=== PATIENT | male | born 1950 | race Caucasian/White ===

== ENCOUNTER 2020-06-24 07:11 | Day surgery (SDC) | payer OTHER ==
[~2020-06-24] VITALS: Ht 177.8 cm; Wt 72.0 kg
[2020-06-24 07:05] VITALS: BP 157/100
[2020-06-24 07:48] VITALS: BP 157/100
[2020-06-24 07:56] VITALS: Ht 177.8 cm; Wt 72.0 kg
== END 2020-06-24 10:30 | disposition short-term general hospital (02) ==
LOC: MI 07:11 → US 10:00 → MI 10:30
PROVIDERS: ATTEND Hospitalist
DX: Z53.8 Procedure and treatment not carried out for other reasons (principal)